=== PATIENT | male | born 1945 | race Two or more races ===

== ENCOUNTER 2023-05-29 09:33 | Emergency (ER) | payer OTHER ==
[~2023-05-29] VITALS: Ht 200.7 cm; Wt 119.3 kg
[2023-05-29] MEDS ORDERED: ASPRUZYO SPRIN500 MG PO (10:51)
[2023-05-29] MEDS ORDERED: EUTHYROX88 MCG PO (10:51)
[2023-05-29] MEDS ORDERED: EZALLOR SPRINKL20 MG PO (10:51)
[2023-05-29] MEDS ORDERED: ELIQUIS5 MG PO (10:51)
[2023-05-29] MEDS ORDERED: ALDACTONE25 MG PO (10:52)
[2023-05-29] MEDS ORDERED: VITAMIN C500 M6 PO (10:52)
[2023-05-29] MEDS ORDERED: OCUVITE LUTEIN1 EAC1 PO (10:52)
[2023-05-29] MEDS ORDERED: EZETIMIBE10 MG PO (10:52)
[2023-05-29] MEDS ORDERED: TORSEMIDE5 MG PO (10:53)
[2023-05-29] MEDS ORDERED: HYOSCYAMINE0.125 M2 PO (10:53)
[2023-05-29] MEDS ORDERED: NITROGLYCERIN0.4 MG SL (10:53)
== END 2023-05-29 14:10 | disposition home or self-care (01) ==
LOC: ER 09:33
DX: S50.812A Abrasion of left forearm, initial encounter (principal); W18.39XA Other fall on same level, initial encounter; Y93.89 Activity, other specified; Y92.89 Other specified places as the place of occurrence of the external cause; Z88.0 Allergy status to penicillin; Z88.2 Allergy status to sulfonamides
CPT/HCPCS: 96365; 99282; J0744